=== PATIENT | male | born 2000 | race Caucasian/White ===

== ENCOUNTER → 2024-11-24 | Outpatient (CLI) | payer BC, SELFPAY ==
--- NOTE | 2024-11-24 09:10 | ECHOD_ITS ---
Reason For Study Reason For Study: CHEST PAIN Procedure This was a 2D Doppler, Color Flow transthoracic echocardiogram. Exam performed in department. Left Ventricle Normal LV size. Left ventricular systolic function is normal. The left ventricular ejection fraction is 60 %. Normal diastololic function. No regional wall motion abnormalities noted. Right Ventricle Normal RV size. Normal systolic function. Atria Normal left atrium. Normal right atrium. Mitral Valve The mitral valve is structurally normal. No prolapse or stenosis seen. Trivial mitral valve insufficiency. Tricuspid Valve Normal tricuspid valve. Trivial tricuspid valve insufficiency. Pulmonary artery systolic pressure is 25 mmHg. Aortic Valve Trisinus/trileaflet aortic valve. Pulmonic Valve Normal pulmonic valve. Trivial pulmonic valve insufficiency. Great Vessels Normal sized aortic root. Pericardium/Pleural No pericardial effusion. MMode/2D Measurements & Calculations LVIDd: 5.6 cm IVSd: 0.92 cm Ao root diam: 3.4 cm LVIDs: 4.0 cm LVPWd: 0.92 cm RVDd: 4.1 cm FS: 28.8 % LAV(MOD-bp): 62.5 ml LVAd ap4: 36.2 cm2 SV(MOD-sp4): 66.9 ml LAV(MOD-bp) Indexed: 26.6 ml/m2 LVLd ap4: 9.3 cm SI(MOD-sp4): 28.4 ml/m2 LAV(MOD-sp2): 59.3 ml EDV(MOD-sp4): 120.0 ml LAV(MOD-sp4): 50.7 ml EDV(sp4-el): 119.4 ml LVAs ap4: 21.2 cm2 LVLs ap4: 7.2 cm ESV(MOD-sp4): 53.1 ml ESV(sp4-el): 53.1 ml EF(MOD-sp4): 55.8 % EF(sp4-el): 55.5 % SV(sp4-el): 66.3 ml LA A4 area: 19.5 cm2 LA dimension(2D): 3.9 cm RA A4 area: 16.7 cm2 Time Measurements MV dec time: 0.44 sec Doppler Measurements & Calculations MV E max josafat: 70.1 cm/sec Lat Peak E' Josafat: 17.7 cm/sec Med Peak E' Josafat: 14.8 cm/sec MV A max josafat: 32.2 cm/sec E/E' lat: 4.0 E/E' med: 4.7 MV E/A: 2.2 MV V2 max: 91.7 cm/sec Ao V2 max: 131.9 cm/sec MV max P.4 mmHg MV dec slope: 160.9 cm/sec2 Ao max P.0 mmHg MV V2 mean: 51.8 cm/sec Ao V2 mean: 95.8 cm/sec MV mean P.3 mmHg Ao mean P.1 mmHg MV V2 VTI: 31.7 cm Ao V2 VTI: 29.8 cm AV (velocity ratio): 0.74 LV V1 max: 107.7 cm/sec PA V2 max: 109.9 cm/sec TR max josafat: 204.8 cm/sec LV V1 max P.6 mmHg PA V2 mean: 80.6 cm/sec TR max P.8 mmHg LV V1 mean P.5 mmHg LV V1 mean: 73.0 cm/sec LV V1 VTI: 22.1 cm ECHO/Echo Complete Interpretation Summary The left ventricular ejection fraction is 60 %. Structually normal valves. Normal LV size. Normal diastololic function. Ordering Physician: STEPHANIE BANUELOS Referring Physician: STEPHANIE BANUELOS Performed By: [facility] Magdaleno [facility]
== END | disposition home or self-care (01) ==
DX: R07.89 Other chest pain (principal)
CPT/HCPCS: 93306